=== PATIENT | male | born 1935 | race Caucasian/White ===

== ENCOUNTER 2022-08-14 22:05 | Emergency (ER) | payer MEDICARE, SELFPAY ==
--- NOTE | ~2022-08-14 | CT_ITS ---
EXAMINATION: CT HEAD WITHOUT CONTRAST CLINICAL INFORMATION: Fall. COMPARISON: None. TECHNIQUE: Contiguous axial imaging was performed from the skull base to vertex without intravenous administration of contrast. Coronal and sagittal reformatted images are performed at the CT scanner. [This CT examination was performed using dose optimization techniques as appropriate, variously including the following: *Automated exposure control *Adjustment of mA and/or kV according to patient size (this includes techniques or standardized protocols for targeted exams where dose is matched to indication/reason for exam; i.e. extremities or head) *Use of iterative reconstruction technique] DLP: 711 mGy-cm. FINDINGS: There is no evidence of acute intracranial hemorrhage or territorial infarction. No abnormal mass-effect or midline shift is seen. Mott to white matter differentiation is well preserved. No extra-axial fluid collections are identified. There is generalized global volume loss. There is marked prominence of the ventricles and the sulci . There is moderate to marked hypodensity of the periventricular white matter due to chronic small vessel ischemic disease. There are vascular calcifications of the internal carotid arteries bilaterally. There is no osseous abnormality. The mastoid air cells and visualized portions of the paranasal sinuses are well-aerated. CT/CT head/brain wo IV con IMPRESSION: No acute intracranial pathology.
[2022-08-14 22:18] VITALS: BP 112/78; PULSE 80; RESP 18; O2SAT 100; O2SAT 99; BMI 23.1
[2022-08-14 22:34] VITALS: BP 106/55; PULSE 76; RESP 18; TEMP 36.7; O2SAT 96
--- NOTE | 2022-08-14 22:44 | ED.FALL ---
HPI - Fall General Chief Complaint: Fall Stated Complaint: From SNF, fall per EMS Time Seen by Provider: 08/14/22 22:26 Source: patient and EMS Mode of arrival: EMS Limitations: no limitations History of Present Illness HPI Narrative: Patient frail elderly patient came from [facility] had a mechanical fall while going to the bathroom patient denies any injuries no headache no back pain no hip pain alert oriented x3 no loss of consciousness no seizures no palpitation no syncope dizziness Related Data Allergies Allergy/AdvReac Type Severity Reaction Status Date / Time No Known Allergies Allergy Verified 08/14/22 23:12 Review of Systems Review of Systems: Yes all other systems are reviewed and are negative [facility] Social History Social History Alcohol intake: never Smoked in Last 30 Days: No Use of substances other than those prescribed or required for medical reasons: No Advance Directives: No Physical Exam Vital Signs: Vital Signs: Last Vital Signs Temp 97.5 F 08/14/22 23:35 Pulse 77 08/14/22 23:35 Resp 18 08/14/22 23:35 BP 110/65 08/14/22 23:35 Pulse Ox 99 08/14/22 23:35 O2 Del Method 08/14/22 23:35 BMI result Body Mass Index 23.1 Appearance: Alert. Oriented X3. No acute distress. Eyes: PERRLA, No Nystagmus HEENT: Pharynx normal. Oral Mucosa moist atraumatic normocephalic Neck: Normal inspection. Neck supple. CVS: Normal heart rate and rhythm. Pulses normal. Respiratory: No respiratory distress. Equal air entry bilateral, no wheezing/rales/rhonchi Abdomen: Soft and nontender. Bowel sounds are present, no mass palpable, no CVA tenderness Skin: Skin warm and dry. Normal skin color. Normal skin turgor. Extremities: No lower extremity edema. No calf tenderness pelvis stable able to stand on his feet without any significant pain Neuro: Oriented X 3. No motor deficit. No sensory deficit.No cerebellar signs , cranial nerves II-XII intact Medical Decision Making Medical Decision Making MDM Narrative: Patient is status post minor fall no signs of injuries head CT negative CT/CT head/brain wo IV con IMPRESSION: No acute intracranial pathology. ? Discharge Plan Discharge Clinical Impression: Fall Patient Disposition: Xfer SNF Transfer Details: No injuries noticed CT scan of the head is negative Instructions: Fall Prevention for Older Adults (ED) Additional Instructions: CT/CT head/brain wo IV con IMPRESSION: No acute intracranial pathology. ?Care as advised
[2022-08-14 23:35] VITALS: BP 110/65; PULSE 77; RESP 18; TEMP 36.4; O2SAT 99
--- NOTE | 2022-08-15 00:27 | PC.NURSE ---
Report called to [facility], spoke with Yaa. Pt waiting for EMS transport
== END 2022-08-15 00:44 | disposition skilled nursing facility (03) ==
PROVIDERS: Emergency Provider Internal Medicine; PCP Family Medicine Geriatric Medicine
DX: Z71.1 Person with feared health complaint in whom no diagnosis is made (principal); Z91.81 History of falling
CPT/HCPCS: 70450; 99284